=== PATIENT | female | born 1995 | race Caucasian/White ===

== ENCOUNTER 2017-02-14 11:16 | Inpatient (IN) | payer OTHER ==
[~2017-02-14] VITALS: Ht 170.2 cm; Wt 84.0 kg
[2017-02-14] VITALS (30 sets, daily range): BP systolic 110–157; BP diastolic 57–83
[2017-02-14] MEDS ORDERED: ZYRT10CA PO (11:25)
[2017-02-14] MEDS ORDERED: PRENTAB9 PO (11:25)
[2017-02-14] MEDS ORDERED: LR 1,000 ML IV SCH (11:48)
[2017-02-14 12:40] LABS: BASO # 0.1 K/mm3 (0.0-0.2); BASO % 0.3 % (0.0-1.0); EOS # 0.1 K/mm3 (0.0-0.50); EOS % 0.7 % (0.0-3.0); LARGE UNSTAINED CELL # 0.1 K/mm3 (0.0-0.4); LARGE UNSTAINED CELL % 0.6 % (0.0-4.0); LYMPH # 1.7 K/mm3 (1.5-6.5); MEAN CORPUSCULAR HEMOGLOBIN 24.1 pg (27.0-33.0); MEAN CORPUSCULAR HGB CONC 31.4 g/dl (32.0-36.5); MEAN CORPUSCULAR VOLUME 76.7 fl (80.0-96.0); MONO # 0.6 K/mm3 (0.0-0.8); NEUTROPHILS # 15.9 K/mm3 (1.8-7.7); NEUTROPHILS % 86.4 % (36.0-66.0); PLATELET COUNT, AUTOMATED 284 k/mm3 (150-450); RED CELL DISTRIBUTION WIDTH 15.5 % (11.5-14.5); WHITE BLOOD COUNT 18.4 K/mm3 (4.0-10.0)
[2017-02-14] MEDS ORDERED: FENTANYL 2MCG/ML ROPIVACAINE 0.2% NACL 250 ML CADD As Ordered ONE (13:08)
[2017-02-14] MEDS ORDERED: NALOXONE INJ 0.4 MG/1 ML VIAL (J2310) IV PRN (14:45)
[2017-02-14] MEDS ORDERED: ONDANSETRON 4MG/2ML VIAL (J2405) IV PRN (14:45)
[2017-02-14] MEDS ORDERED: EPIDURAL/PCA KEYS XX PRN (14:45)
[2017-02-14] MEDS ORDERED: FENTANYL/ROPIVACAINE/NACL CADD 250 ML EPIDURAL SCH (14:45)
[2017-02-14] MEDS ORDERED: EPIDURAL COMMENT XX SCH (14:45)
[2017-02-14] MEDS ORDERED: diphenhydrAMINE INJ 50MG/ML VIAL (J1200) IV PRN (14:45)
[2017-02-14] MEDS ORDERED: REFRIGERATOR IV KEYS XX PRN (14:45)
[2017-02-14] MEDS ORDERED: OXYTOCIN 30 UNITS IN 0.9% NaCl 500ML IV BAG (J2590) As Ordered ONE (16:26)
[2017-02-14] MEDS ORDERED: DIBUCAINE 1% OINTMENT 30GM TOP PRN (18:30)
[2017-02-14] MEDS ORDERED: DOCUSATE SODIUM 100 MG CAP PO PRN (18:30)
[2017-02-14] MEDS ORDERED: METHYLERGONOVINE MALEATE 0.2 MG TAB PO PRN (18:30)
[2017-02-14] MEDS ORDERED: RHOGAM 300 MCG (1500 IU) INJ (J2790) IM SCH (18:30)
[2017-02-14] MEDS ORDERED: MEASLES,MUMPS,RUBELLA VACCINE INJ (MMR-II) (90707) SC SCH (18:30)
[2017-02-14] MEDS ORDERED: OXYTOCIN DRIP 30 UNITS in APPROPRIATE DILUENT 1 EA IV SCH (18:30)
[2017-02-14] MEDS: IBUPROFEN 800 MG TAB PO PRN (18:50)
[2017-02-14] MEDS: ACETAMINOPHEN TAB 650MG DOSE (2X325MG) PO PRN (20:24)
[2017-02-15 06:18] VITALS: BP 118/67
[2017-02-15] MEDS: IBUPROFEN 800 MG TAB PO PRN ×3 (07:48→15:35)
[2017-02-15] MEDS: ACETAMINOPHEN TAB 650MG DOSE (2X325MG) PO PRN ×3 (09:13→18:36)
[2017-02-15] MEDS: PRENATAL VITAMIN TAB PO SCH (09:13)
[2017-02-15 18:21] VITALS: BP 111/58
[2017-02-15 22:00] VITALS: BP 112/56
--- NOTE | 2017-02-15 22:55 | IPN ---
DATE: 02/15/2017 SUBJECTIVE: This lady is a 21-year-old female who had a spontaneous vaginal delivery of a live female infant weighing 3022 grams, 7 pounds 0 ounces, scores of 9 and 9 at one and five minutes respectively. She has had a little bit of a laceration first-degree vaginal which was repaired with 3-0. On her first , day we discussed phlebitis, cystitis, mastitis, metritis and cellulitis, diet, exercise, pain management, perineal, breast and wound care. OBJECTIVE: Her blood pressure today is 118/67, respirations are 17, pulse 85 and temperature is 98.8. Her admitting hemoglobin was 11.2, hematocrit 35.6 and platelets were 284. The rest of the examination is unremarkable. She is normocephalic, atraumatic. Neck full range of motion. Pupils equally reactive to light. Distal pulses are symmetric. No evidence of deep venous thrombosis (DVT), pulmonary embolism (PE) or superficial phlebitis. Chest is clear bilaterally to bases. No wheezes or rhonchi. Uterus two below. Lochia is moderate. Perineum is healing. No rashes, lesions or pruritus. No arthralgia or myalgia. She is not complaining of a cough, wheeze, shortness of breath or dyspnea on exertion. Not bleeding. Neuro complete. No incontinence, urgency, frequency. The nausea, vomiting, diarrhea or constipation. Plan of care is to send her home tomorrow with medications and a six-week checkup.
[2017-02-16 06:00] VITALS: BP 104/58
[2017-02-16] MEDS: PRENATAL VITAMIN TAB PO SCH (07:41)
[2017-02-16] MEDS: ACETAMINOPHEN TAB 650MG DOSE (2X325MG) PO PRN ×2 (07:41→13:36)
[2017-02-16] MEDS: IBUPROFEN 800 MG TAB PO PRN (07:41)
[2017-02-16] MEDS ORDERED: ACET50TA PO (08:11)
[2017-02-16] MEDS ORDERED: IBUP-1114 PO (08:11)
[2017-02-16] MEDS ORDERED: COLA100C PO (08:11)
[2017-02-16] MEDS ORDERED: fentaNYL 100 MCG/2 ML INJECTION (J3010) As Ordered ONE (09:38)
[2017-02-16] MEDS ORDERED: fentaNYL 100 MCG/2 ML INJECTION (J3010) IV ONE (10:30)
[2017-02-16 10:45] VITALS: BP 108/58
== END 2017-02-16 14:15 | disposition home or self-care (01) | DRG 775 ==
LOC: M LDO 11:16 → M LDI 11:41 → M OBS 19:37
PROVIDERS: ADMIT Advanced Practice Midwife; ATTEND Advanced Practice Midwife
PROC: 10E0XZZ Delivery of Products of Conception, External Approach (ICD-10-PCS; principal; 2017-02-14)
PROC: 0HQ9XZZ Repair Perineum Skin, External Approach (ICD-10-PCS; 2017-02-14)
DX: O70.0 First degree perineal laceration during delivery (principal); Z3A.38 38 weeks gestation of pregnancy; O71.82 Other specified trauma to perineum and vulva; Z37.0 Single live birth

== ENCOUNTER 2018-03-17 17:25 | Emergency (ER) | payer OTHER ==
[2018-03-17 20:15] LABS: KETONE, URINE AUTO RFX NEGATIVE (NEGATIVE); LEUKOCYTE ESTERASE UR AUTO RFX NEGATIVE (NEGATIVE); MUCUS, URINE RFX SMALL (NEGATIVE); NITRITE, URINE AUTO RFX NEGATIVE (NEGATIVE); RBC, URINE AUTO RFX 2 /HPF (0-3); SPECIFIC GRAVITY UR AUTO RFX 1.011 (1.002-1.035); SQUAM EPITHELIAL CELL UR AURFX 1 /HPF (0-6); WBC, URINE AUTO RFX 2 /HPF (0-3)
== END 2018-03-17 21:30 | disposition home or self-care (01) ==
LOC: M ED 17:25
DX: M54.5 Low back pain (principal); J30.2 Other seasonal allergic rhinitis; Z87.891 Personal history of nicotine dependence; Z79.899 Other long term (current) drug therapy
CPT/HCPCS: 81001

== ENCOUNTER → 2018-04-29 | Outpatient (REF) | payer OTHER ==
[2018-04-30 12:55] LABS: CHLAMYDIA DNA AMPLIFICATION NEGATIVE (NEGATIVE); GC DNA AMPLIFICATION NEGATIVE (NEGATIVE)
== END ==
LOC: M SFHCLERA 20:02
DX: M54.5 Low back pain (principal)
CPT/HCPCS: 87086